=== PATIENT | female | born 1970 | race African-American/Black ===

== ENCOUNTER 2017-05-23 15:42 | Emergency (ER) | payer OTHER ==
[~2017-05-23] VITALS: Ht 170.2 cm; Wt 87.1 kg
[2017-05-23 16:12] VITALS: BP 159/90
== END 2017-05-23 16:48 | disposition home or self-care (01) ==
LOC: ER 15:42
DX: J02.9 Acute pharyngitis, unspecified (principal); H10.33 Unspecified acute conjunctivitis, bilateral; R51 Headache

== ENCOUNTER → 2023-01-17 | Outpatient (CLI) | payer MEDICAID | END | disposition home or self-care (01) | LOC: Rad HDHVI 15:30 | PROVIDERS: ATTEND Internal Medicine Cardiovascular Disease | DX: I07.1 Rheumatic tricuspid insufficiency (principal); I11.9 Hypertensive heart disease without heart failure; I34.1 Nonrheumatic mitral (valve) prolapse | CPT/HCPCS: 93306 ==

== ENCOUNTER → 2023-01-26 | Outpatient (CLI) | payer MEDICAID ==
[~2023-01-26] VITALS: Ht 167.6 cm; Wt 103.4 kg
[~2023-01-26] MED LIST: ADENOSINE 87 MG in GIVE UN-DILUTED 0 ML IV ONE; ADENOSINE 90 MG/30 ML INJ IV ONE
== END | disposition home or self-care (01) ==
LOC: Rad HDHVI 09:02
PROVIDERS: ATTEND Internal Medicine Cardiovascular Disease
DX: I11.0 Hypertensive heart disease with heart failure (principal); I50.43 Acute on chronic combined systolic (congestive) and diastolic (congestive) heart failure; E11.9 Type 2 diabetes mellitus without complications; R06.02 Shortness of breath; R42 Dizziness and giddiness; Z82.49 Family history of ischemic heart disease and other diseases of the circulatory system
CPT/HCPCS: 73130; 78452; 93005; 96374; 96375; A9500; J0153

== ENCOUNTER 2024-11-11 09:12 | Outpatient (CLI) | payer MEDICAID ==
[~2024-11-11] VITALS: Ht 167.6 cm; Wt 102.1 kg
[2024-11-11] MEDS ORDERED: ADENOSINE 90 MG/30 ML INJ IV ONE (10:21)
[2024-11-11] MEDS ORDERED: ADENOSINE 86 MG in GIVE UN-DILUTED 0 ML IV ONE (10:30)
== END 2024-11-11 17:00 | disposition home or self-care (01) ==
LOC: Rad HDHVI 09:12
PROVIDERS: ATTEND Internal Medicine Cardiovascular Disease
DX: I49.1 Atrial premature depolarization (principal); I49.3 Ventricular premature depolarization; I11.0 Hypertensive heart disease with heart failure; I50.43 Acute on chronic combined systolic (congestive) and diastolic (congestive) heart failure; R07.89 Other chest pain; E11.9 Type 2 diabetes mellitus without complications; E78.00 Pure hypercholesterolemia, unspecified; R60.0 Localized edema; Z79.84 Long term (current) use of oral hypoglycemic drugs; Z82.49 Family history of ischemic heart disease and other diseases of the circulatory system
CPT/HCPCS: 78452; 93017; A9500; J0153